=== PATIENT | male | born 1950 | race Caucasian/White ===

== ENCOUNTER 2016-10-29 09:04 | Day surgery (SDC) | payer MEDICARE, BC | END 2016-10-29 11:39 | disposition home or self-care (01) | LOC: GIL 09:04 | PROVIDERS: ATTEND Internal Medicine Gastroenterology | DX: Z12.11 Encounter for screening for malignant neoplasm of colon (principal); Z53.9 Procedure and treatment not carried out, unspecified reason ==

== ENCOUNTER 2017-01-01 14:47 | Day surgery (SDC) | payer MEDICARE, BC ==
[~2017-01-01] VITALS: Ht 182.9 cm; Wt 69.5 kg
[2017-01-01 15:08] VITALS: Ht 182.9 cm; Wt 69.5 kg
[2017-01-01] MEDS ORDERED: PROPOFOL 0 ML ONE (15:40)
[2017-01-01 15:48] VITALS: BP 166/82; PULSE 41; RESP 20
--- NOTE | 2017-01-09 05:22 | GILP ---
DATE OF PROCEDURE: 01/01/2017 PROCEDURE PERFORMED: Colonoscopy. SURGEON: Tammy Gracia MD. PREOPERATIVE DIAGNOSIS: Screening colonoscopy. POSTOPERATIVE DIAGNOSES: 1. Colonoscopy all the way to the cecum. 2. External hemorrhoids. 3. No colon neoplasm was identified. 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 The procedure and possible complications were well explained to him. He understood and consented to the procedure. DESCRIPTION OF PROCEDURE: The colonoscope was carefully introduced in the rectum under direct vision and it was advanced all the way to the cecum. Findings, the patient had external hemorrhoids. No colon neoplasm was identified. He tolerated the procedure very well and there was no complication from the procedure. At the end of procedure he was awake with stable vital signs, and he was discharged home in the care of his family. IMPRESSION: 1. Colonoscopy all the way to cecum. 2. External hemorrhoids. 3. No colon neoplasm was identified. PLAN: Next screening colonoscopy in 10 years. Dictated By: MD TOBIAS Gordon/denzel/miriam /Document#: [id number] CC: Tammy Gracia MD;*EndCC*
== END 2017-01-01 17:19 | disposition home or self-care (01) ==
LOC: GIL 14:47
PROVIDERS: ATTEND Internal Medicine Gastroenterology
DX: Z12.11 Encounter for screening for malignant neoplasm of colon (principal); K64.4 Residual hemorrhoidal skin tags